=== PATIENT | female | born 1940 | race Caucasian/White ===

== ENCOUNTER → 2018-03-26 | Outpatient (CLI) | payer OTHER ==
[~2018-03-26] MED LIST: CYCLOBENZAPRINE10 MG PO; ESTRACE1 MG PO; PAROXETINE HCL30 MG PO; RESTORIL30 MG PO; VERTICALM25 MG PO; [UNRECOGNIZED DRUG - OTHER]
== END ==
LOC: M.RAD 09:33
DX: Z12.31 Encounter for screening mammogram for malignant neoplasm of breast (principal)

== ENCOUNTER 2019-05-19 08:30 | Emergency (ER) | payer OTHER ==
[~2019-05-19] VITALS: Ht 162.6 cm; Wt 54.4 kg
--- NOTE | ~2019-05-19 | EKG ---
[place] [address] ELECTROCARDIOGRAM REPORT Name: TRAV CAMPBELL Room: [facility].#: [id number] Admission: Attend Phys: Discharge: Date of : 44 Date of Service: 05/19/19833 Report #: [id number] THIS REPORT FOR: cc: Tello Javed MD ~ THIS REPORT FOR: //name// [facility] ED Test Date: 2019-05-19 Test Time: 08:34:35 Pat Name: TRAV CAMPBELL Department: Room: Gender: F Personnel Interviewer: : 1940 Requested By: Will Bejarano Order Number: [id number] MD: Measurements Intervals [place] Rate: 108 P: 75 AR: 152 QRS: 72 QRSD: 89 T: 69 QT: 364 QTc: 488 Interpretive Statements Sinus tachycardia Probable left atrial enlargement Borderline prolonged QT interval Compared to ECG 06/20/2012 14:00:26 Sinus rhythm no longer present [email or web address] By: [id number] Epiphany Epiphany, /EPI
[2019-05-19] MEDS ORDERED: ALPRAZOLAM XR3 MG PO (08:46)
[2019-05-19] MEDS ORDERED: AMLODIPINE-BENAZEPRI (08:46)
[2019-05-19] MEDS ORDERED: NORCO 10-325 T1 EACH PO (08:47)
[2019-05-19] MEDS ORDERED: GABAPENTIN100 MG PO (08:47)
[2019-05-19] MEDS ORDERED: ATROVENT HFA14 GM INH (08:47)
[2019-05-19 09:29] LABS: ABSOLUTE EOSINOPHILS 0.3 thou/uL (0.0-0.7); ABSOLUTE LYMPHOCYTES 1.4 thou/uL (0.8-5.3); ABSOLUTE MONOCYTES 0.5 thou/uL (0.0-1.2); ABSOLUTE NEUTROPHILS 2.4 thou/uL (1.6-8.1); BASOPHILS 1.1 %; EOSINOPHILS 6.1 %; HEMATOCRIT 36.2 % (37.0-47.0); HEMOGLOBIN 12.4 gm/dL (12.0-15.0); LYMPHOCYTES 30.9 %; MCH 31.5 pg (26.0-34.0); MCHC 34.2 g/dL (28.0-37.0); MCV 92.1 fL (80.0-100.0); MONOCYTES 10.7 %; MPV 7.5 fl. (7.2-11.1); NUCLEATED RBCS 0 /100WBC; PLATELET COUNT* 289 thou/uL (150-400); POLYS 51.2 %; RBC 3.93 mil/uL (4.20-5.00); RDW-CV 14.7 % (10.5-14.5); WBC 4.6 thou/uL (4.0-11.0)
[2019-05-19 09:38] LABS: APTT 27.1 Seconds (25.0-31.3); CALCIUM 8.8 mg/dL (8.5-10.1); CREATININE 0.7 mg/dL (0.6-1.3); POTASSIUM 3.5 mmol/L (3.5-5.1); PROTIME 10.2 Seconds (9.20-11.50)
[2019-05-19 09:53] LABS: ALBUMIN 3.7 g/dL (3.4-5.0); CK-MB MASS 1.2 ng/mL (<0.5-3.6); MAGNESIUM 2.2 mg/dL (1.8-2.4); TOTAL BILIRUBIN 0.4 mg/dL (<0.1-1.0); TOTAL PROTEIN 7.5 g/dL (6.4-8.2)
[2019-05-19 14:18] VITALS: BP 136/92
--- NOTE | 2019-05-21 14:02 | TST ---
[place] [address] TREADMILL STRESS TEST Name: SHANNANTRAV Room: [facility]#: [id number] Admission: 05/19/19 Attend Phys: Discharge: 05/19/19 Date of : 44 Date of Service: 05/19/19 1412 Report #: [id number] THIS REPORT FOR: cc: Gabriella Morocho MD, Lin W. MD Blick, David R. MD [facility] ~ THIS REPORT FOR: //name// CC: Will Morocho MD DATE OF SERVICE: 05/19/2019 EXERCISE STRESS TEST INDICATIONS: Exercise stress test was requested in this patient with a history of chest pain. PROCEDURE: The patient was exercised on a Yogi protocol treadmill test. RESULTS: The patient had a pretest heart rate of 94, blood pressure 122/76. The patient was able to exercise for 6 minutes and 9 seconds on the treadmill, achieved a peak heart rate of 162, which was greater than 90% of maximum predicted heart rate for the patient's age. The peak blood pressure was 188/88. In recovery, the patient had a heart rate of 113, blood pressure 160/95. The patient denied chest pains. The exercise was terminated secondary to achieving target heart rate. The patient's resting ECG showed a normal sinus rhythm without ST or T-wave change. With exercise, there was occasional PVC noted. There were no significant ST-segment changes noted with exercise. There was noted to be artifact on the ECG tracings. There was a rare PVC during recovery. IMPRESSION: 1. Adequate exercise tolerance. 2. No chest pain with exercise. 3. No ischemic ST segment changes noted. 4. Negative exercise stress test for myocardial ischemia. 5. Clinical response, nonischemic. 6. ECG response, nonischemic. 7. This exercise stress test is felt to be a low-risk study for predicting future cardiac events. <ELECTRONICALLY SIGNED> By: Luis Sigala MD, FACC 05/21/19 1402 1412 2211 Luis Sigala MD, FACC /nt
== END 2019-05-19 14:22 | disposition home or self-care (01) ==
LOC: M.ERS 08:30
PROVIDERS: Family Medicine
DX: R07.89 Other chest pain (principal); Z90.710 Acquired absence of both cervix and uterus

== ENCOUNTER → 2021-06-09 | Outpatient (CLI) | payer BC ==
[~2021-06-09] MED LIST changes: +ALPRAZOLAM XR3 MG PO; +AMLODIPINE-BENAZEPRI; +ATROVENT HFA14 GM INH; +GABAPENTIN100 MG PO; +NORCO 10-325 T1 EACH PO
== END ==
LOC: M.RAD 06-07 10:10
PROVIDERS: ATTEND Family Medicine
DX: Z12.31 Encounter for screening mammogram for malignant neoplasm of breast (principal)